=== PATIENT | male | born 1955 | race Caucasian/White ===

== ENCOUNTER 2019-09-24 22:32 | Emergency (ER) | payer MEDICAID, MEDICARE ==
[~2019-09-24] VITALS: Ht 154.9 cm; Wt 63.0 kg
--- NOTE | 2019-09-24 22:58 | NUR ---
BROTHER ETTA [phone] CALL FOR UPDATE/INFO.
[2019-09-24] MEDS ORDERED: SODIUM CHLORIDE 0.9% 1,000ML IVBOLUS ONE (23:00)
--- NOTE | 2019-09-24 23:04 | NUR ---
BIB [facility], HIGH BS >500 PER EMS. PT WITH C/O WEAKNESS, N/V, FEELING OVERALL UNWELL. PT WITH T2DM AND NON COMPLIANT WITH MEDICATIONS. PT ATTACHED TO ALL MONITORS AND NS IVF INITIATED. LABS DRAWN FOR ACCURATE BLOOD GLUCOSE. PT IN NO ACUTE DISTRESS. RESPIRATIONS EVEN AND UNLABORED. CALL LIGHT WITHIN REACH.
[2019-09-24 23:26] LABS: MICROSCOPIC NOT IND
[2019-09-24 23:30] LABS: CULTURE INDICATED? NO
[2019-09-24 23:34] LABS: BASOPHILS # (AUTO) 0.03 x10^3/uL (0-0.1); BASOPHILS % (AUTO) 0 % (0-1); EOSINOPHILS # (AUTO) 0.04 x10^3/uL (0-0.4); EOSINOPHILS % (AUTO) 0 % (1-7); LYMPHOCYTES # (AUTO) 1.75 x10^3/uL (1-3.4); LYMPHOCYTES % (AUTO) 18 % (22-44); MD NO; MEAN CORPUSCULAR HEMOGLOBIN 28.9 pg (27.5-34.5); MEAN CORPUSCULAR HGB CONC 32.1 g/dL (33.2-36.2); MEAN PLATELET VOLUME 10.2 fL (7.4-10.4); MONOCYTES # (AUTO) 0.82 x10^3/uL (0.2-0.8); MONOCYTES % (AUTO) 8 % (2-9); NEUTROPHILS # (AUTO) 7.21 x10^3/uL (1.8-6.8); NEUTROPHILS % (AUTO) 73 % (42-75); PLATELET COUNT 266 x10^3/uL (130-400); RED BLOOD COUNT 6.17 x10^6/uL (4.38-5.82); RED CELL DISTRIBUTION WIDTH 15.1 % (9.4-14.8)
[2019-09-24 23:35] LABS: ALANINE AMINOTRANSFERASE 63 U/L (12-78); ALBUMIN 2.8 g/dL (3.4-5.0); ANION GAP 7 mmol/L (5-15); CHLORIDE 111 mmol/L (98-107); CREATININE 1.36 mg/dL (0.7-1.3)
[2019-09-24 23:39] LABS: ALKALINE PHOSPHATASE 210 U/L (45-117); BILIRUBIN,TOTAL 0.5 mg/dL (0.2-1.0); TOTAL PROTEIN 7.5 g/dL (6.4-8.2); TROPONIN I < 0.015 ng/mL (0.000-0.045)
[2019-09-24] MEDS ORDERED: INSULIN SINGLE DOSE, ER ONE (23:43)
[2019-09-25] MEDS ORDERED: INSULIN REGULAR 100 UNITS/ML, 3ML VIAL IVPush ONE
[2019-09-25 00:39] VITALS: BP 113/86
== END 2019-09-25 00:41 | disposition home or self-care (01) ==
LOC: ED 23:59
DX: E11.65 Type 2 diabetes mellitus with hyperglycemia (principal); R11.2 Nausea with vomiting, unspecified; R53.1 Weakness
CPT/HCPCS: 36415; 80053; 81003; 82962; 83690; 84484; 85025; 93005; 96361; 96374; 99283; J1815; J7030